=== PATIENT | male | born 1960 | race Caucasian/White ===

== ENCOUNTER 2023-07-15 04:55 | Day surgery (SDC) | payer OTHER, SELFPAY ==
[2023-06-24 09:15] VITALS: BMI 33.8
--- NOTE | 2023-07-13 15:15 | SUR.PREOP ---
Left message on voicemail confirming pt appointment time and date.
--- NOTE | 2023-07-14 14:15 | PM.HPGS ---
History of Present Illness History of Present Illness Consent: Risks, benefits, and alternatives have been discussed and questions answered. Patient agrees to proceed with procedure. Chief complaint: hx colon polyps Narrative: Eduardo Flores is a 63 year old male referred for colon cancer screening. He has a history of polyps. His last colonoscopy was 8 years ago. Review of Systems Review of Systems: All systems reviewed & are unremarkable except as noted in HPI and below PMFSH Past Medical History Medical History HTN (hypertension) Hyperlipidemia Obesity Family History Family History Mother Patient's mother is in good health Sibling Patient's sister is in good health Social History Social History Smoking packs per day: 1 Smoking cigarettes per day: 20.0 Years smoked: 9 Smoking pack-years: 9.00 Smoking status: Former smoker Tobacco type: cigarettes Smoking end date: 05/16/90 Alcohol intake: current Substance use: never Substance use type: does not use Lack of Transportation: No Lack of Food: Never True Current Housing: I Have Housing Concerned About Future Housing: No Difficulty Paying Gas/Electric Bills: No Difficulty Paying for Meds: No Currently Unemployed: No Education: High School Diploma/GED Difficulty w/ Childcare or Family Care: No Living arrangements: with family Spiritual care concerns: No Meds Home Medications and Allergies Home Medications Medication Instructions Recorded Confirmed Type rosuvastatin 20 mg tablet 20 mg PO DAILY #90 tabs 12/21/22 07/15/23 Rx atenolol 25 mg tablet 25 mg PO DAILY #90 tabs 04/20/23 07/15/23 Rx fenofibrate 160 mg tablet 160 mg PO DAILY #90 tabs 06/12/23 07/15/23 Rx lisinopril 30 mg tablet 30 mg PO DAILY #90 tabs 06/14/23 07/15/23 Rx cholecalciferol (vitamin D3) 125 125 mcg PO DAILY 06/24/23 07/15/23 History mcg (5,000 unit) tablet (Vitamin D3) magnesium citrate 1 cap PO DAILY 06/24/23 07/15/23 History Allergies Allergy/AdvReac Type Severity Reaction Status Date / Time No Known Allergies Allergy Verified 07/15/23 10:03 Exam Const: General: alert Orientation/consciousness: patient oriented x3 Resp: Auscultation: clear to auscultation bilaterally Cardio: Rhythm: regular rhythm GI: GI Palp: Yes Soft to palpation and No Tenderness to palpation present (GI) Neuro: General: patient oriented x3 Assessment and Plan Assessment and plan (1) Colon cancer screening: Code(s): Z12.11 - Encounter for screening for malignant neoplasm of colon Status: Acute Assessment and Plan: Colonoscopy with possible biopsy or polypectomy or cautery or injection of substances.
[2023-07-15 10:04] VITALS: BP 132/92; PULSE 89; RESP 16; TEMP 36.1; O2SAT 100
--- NOTE | 2023-07-15 10:11 | P.PNAN_ITS ---
Anes - Initial Pre Proc Eval Procedure: Operation Date: 07/15/23 11:00 Proposed Procedures p Colonoscopy - Fredi Costa MD Date/Time: 07/15/23 10:11 Surgeon: Fredi Costa MD Pre Op Diagnosis: hx colon polyps Patient Data Age: 63 Gender: M Height: 1.88 m Weight: 115.9 kg Last Vital Signs Temp 36.1 C L 07/15/23 10:04 Pulse 89 07/15/23 10:04 Resp 16 07/15/23 10:04 BP 132/92 H 07/15/23 10:04 Pulse Ox 100 07/15/23 10:04 O2 Del Method Room Air 07/15/23 10:04 Allergies Allergy/AdvReac Type Severity Reaction Status Date / Time No Known Allergies Allergy Verified 07/15/23 10:03 Home Medications Medication Instructions Recorded Confirmed Type rosuvastatin 20 mg tablet 20 mg PO DAILY #90 tabs 12/21/22 07/15/23 Rx atenolol 25 mg tablet 25 mg PO DAILY #90 tabs 04/20/23 07/15/23 Rx fenofibrate 160 mg tablet 160 mg PO DAILY #90 tabs 06/12/23 07/15/23 Rx lisinopril 30 mg tablet 30 mg PO DAILY #90 tabs 06/14/23 07/15/23 Rx cholecalciferol (vitamin D3) 125 125 mcg PO DAILY 06/24/23 07/15/23 History mcg (5,000 unit) tablet (Vitamin D3) magnesium citrate 1 cap PO DAILY 06/24/23 07/15/23 History Patient hx anesthesia problems: none Family hx anesthesia problems: none Results Review: All pre-operative results and documents have been reviewed as part of the pre- operative evaluation. [facility] Past Medical History Medical History (Updated 07/15/23 @ 10:12 by Greg Mendez MD) HTN (hypertension) Hyperlipidemia Obesity Family History Family History Mother Patient's mother is in good health Sibling Patient's sister is in good health Social History Social History Smoking packs per day: 1 Smoking cigarettes per day: 20.0 Years smoked: 9 Smoking pack-years: 9.00 Smoking status: Former smoker Tobacco type: cigarettes Smoking end date: 05/16/90 Alcohol intake: current Substance use: never Substance use type: does not use Lack of Transportation: No Lack of Food: Never True Current Housing: I Have Housing Concerned About Future Housing: No Difficulty Paying Gas/Electric Bills: No Difficulty Paying for Meds: No Currently Unemployed: No Education: High School Diploma/GED Difficulty w/ Childcare or Family Care: No Living arrangements: with family Spiritual care concerns: No Anes - Eval Final PreProcedure Day of Procedure 07/15/23 10:11 Patient weight: obese Heart: regular rate and rhythm Lungs: clear to auscultation Airway: Mallampati scale class II Neurological: alert and oriented Last oral intake: >/= 8 hours ASA classification: II Emergent: no Anesthetic plan: proceed Anesthesia type and monitoring: general GIVS and standard monitoring Results Review: All pre-operative results and documents have been reviewed as part of the pre- operative evaluation. Informed Consent: The patient's anesthetic plan and its attendant risks and benefits were discussed with the patient/family/POA. Questions were solicited and answers provided to the satisfaction of the patient/family/POA.
[2023-07-15] MEDS: LACTATED RINGERS 1,000 ML 150 ML IV CONT (10:14)
[2023-07-15] MEDS: SIMETHICONE ORAL SUSPENSION 20 MG/0.3 ML 30 ML BOTTLE 0.6 ML IRRIGATION (11:08)
[2023-07-15 11:18] VITALS: BP 103/69; PULSE 80; RESP 20; O2SAT 99
[2023-07-15 11:28] VITALS: BP 101/73; PULSE 83; RESP 18; O2SAT 100
[2023-07-15 11:38] VITALS: BP 120/71; PULSE 83; RESP 16; O2SAT 100
--- NOTE | 2023-07-15 11:50 | SUR.PHASEII ---
pt given verbal discharge instructions and hard copy. verbalized understanding. discharge papers were not signed.
== END 2023-07-15 11:48 | disposition home or self-care (01) ==
PROVIDERS: PCP Internal Medicine; Visit Provider Internal Medicine Gastroenterology
PROC: 0DJD8ZZ Inspection of Lower Intestinal Tract, Via Natural or Artificial Opening Endoscopic (ICD-10-PCS; CPT 45378; principal; 2023-07-15 11:00)
DX: Z12.11 Encounter for screening for malignant neoplasm of colon (principal); K64.8 Other hemorrhoids; K57.30 Diverticulosis of large intestine without perforation or abscess without bleeding; I10 Essential (primary) hypertension; E78.5 Hyperlipidemia, unspecified; E66.9 Obesity, unspecified; Z68.32 Body mass index [BMI] 32.0-32.9, adult; Z86.010 Personal history of colon polyps; Z87.891 Personal history of nicotine dependence
CPT/HCPCS: 45378; J2704; J7120